=== PATIENT | male | born 1990 | race Caucasian/White ===

== ENCOUNTER 2019-11-07 09:02 | Emergency (ER) | payer SELFPAY ==
[2019-11-07 09:08] VITALS: BP 147/95; PULSE 102; RESP 16; TEMP 36.5; O2SAT 100
--- NOTE | 2019-11-07 10:01 | ED.URI ---
HPI - URI/Sore Throat General Chief Complaint: Upper Respiratory Infection Stated Complaint: FEVER/CONGESTION/SOB/DIARRHEA Source: patient and RN notes reviewed Mode of arrival: ambulatory Limitations: no limitations History of Present Illness HPI Narrative: The patient--a non-smoker/nondrinker-- presents with a shorter 2-day history of measured fever to 101, congestion, myalgias, chills and scantily productive cough. No wheeze, sputum changes, chest pain; symptoms are mild, worse upon awakening the morning. [id number] influenza test positive flu A; patient was recently on [place] [employer] flight Related Data Allergies Allergy/AdvReac Type Severity Reaction Status Date / Time iohexol Allergy Difficulty Verified 11/07/19 09:28 [From contrast - CT, X-RAY] Breathing Review of Systems Review of Systems: Narrative: General/Constitutional: No weight loss, possible fever Eyes: N0: Redness,discharge Ears/Nose/Throat: No: Epistaxis,ear discharge Respiratory: Denies: Hemoptysis Gastrointestinal: No Vomiting, Bleeding-rectal Skin: No Lumps, eruption Neurologic: No Focal Weakness,Sz Hematologic: Denies: Petechiae/Purpura Psychiatric: No: Suicida ideationl All Other Systems: Reviewed and Negative PMFSH Comments At time of signature, agree with nursing past medical, surgical, social and family history. There is no relevant family history pertinent to the presenting complaint Exam Narrative: Exam Narrative: General Appearance: Well appearing, Well nourished EYE: PERRLA, Conjunctiva clear Ears: Auditory canal normal, TM normal Nose: Rhinorrhea, Mucousal erythema Mouth/Throat: MM moist, Uvula midline, Pharyngeal erythema Neck: Supple, No adenopathy Respiratory: No respiratory distress, Breath sounds equal, Clear to auscultation Cardiovascular: RRR, No JVD Musculoskeletal: Non tender, Normal strength Skin: Warm, Dry Neurological: A&O x3, CN II-XII intact Psychiatric: Normal mood, Normal affect Course Vital Signs Vital signs: Vital Signs Temperature 97.7 F 11/07/19 09:08 Pulse Rate 102 H 11/07/19 09:08 Respiratory Rate 16 11/07/19 09:08 Blood Pressure 147/95 H 11/07/19 09:08 Pulse Oximetry 100 11/07/19 09:08 Temperature 97.7 F 02/08/20 09:08 Pulse Rate 102 H 11/07/19 09:08 Respiratory Rate 16 11/07/19 09:08 Blood Pressure 147/95 H 11/07/19 09:08 Pulse Oximetry 100 11/07/19 09:08 MDM - URI/Sore Throat Lab Data Labs: Influenza A Screen Positive Reference Range: Negative Influenza B Screen Negative Reference Range: Negative Discharge Plan Discharge Clinical Impression: Influenza Patient Disposition: Home, Self-Care Condition: Stable Instructions: Influenza (ED) Prescriptions: New codeine-guaifenesin 10-100 mg/5 mL liquid 7.5 ml PO Q6H PRN (Reason: cough) Qty: 118 RF: 0 oseltamivir [Tamiflu] 75 mg capsule 75 mg PO Q12H 5 Days Qty: 10 RF: 0 benzonatate [Tessalon Perles] 100 mg capsule 100 mg PO TID Qty: 20 RF: 1 Interventions: Discharge Disposition Last Done: 11/07/19 09:50 Follow-up/Referrals: PHYSICIAN,BLENDING MACHINE OPERATOR [Primary Care Provider] - Stand Alone Forms: Work/School Release IP Discharge Date/Time: 11/07/19 09:45
== END 2019-11-07 09:45 | disposition home or self-care (01) ==
PROVIDERS: Emergency Provider Emergency Medicine
DX: J10.1 Influenza due to other identified influenza virus with other respiratory manifestations (principal)
CPT/HCPCS: 87804; 99213; G0463

== ENCOUNTER 2023-03-13 16:30 | Emergency (ER) | payer SELFPAY | END 2023-03-13 19:57 | disposition home or self-care (01) | PROVIDERS: Emergency Provider Emergency Medicine | DX: L03.113 Cellulitis of right upper limb (principal) | CPT/HCPCS: 99283; A9270 ==